=== PATIENT | male | born 1955 | race Caucasian/White ===

== ENCOUNTER 2019-01-20 12:56 | Outpatient (CLI) | payer BC, MEDICARE | END 2019-01-20 12:57 | disposition home or self-care (01) | LOC: C.PAT 12:56 | DX: K43.9 Ventral hernia without obstruction or gangrene (principal) ==

== ENCOUNTER 2019-02-10 08:03 | Inpatient (IN) | payer BC, MEDICARE ==
[2019-02-10 08:04] VITALS: BMI 35.2
[2019-02-10] MEDS ORDERED: Sodium Chloride 0.9% 1,000 ML IV ONE (08:25)
--- NOTE | 2019-02-10 08:25 | C.PDOC ---
History Of Present Illness 64 y/o male,w/PMhx of HTN, hyperlipidemia, and BPH, presents to the ER complaining of ventral hernia which has been present for the past 1 year. Patient reports that he has pain mainly along the periumbilical region. Patient reports that he has increasing pain and the pain is worse with coughing. Denies having fever, chills, nausea, vomiting, abnormal bowel movements, and abdominal surgical history. Time Seen by Provider: 02/10/19 08:24 Chief Complaint (Nursing): Medical Clearance History Per: Patient History/Exam Limitations: no limitations Onset/Duration Of Symptoms: Days, Waxing/Waning Severity: Moderate Past Medical History Reviewed: Historical Data, Nursing Documentation, Vital Signs Vital Signs: Last Vital Signs Temp 98 F 02/10/19 08:09 Pulse 87 02/10/19 08:09 Resp 18 02/10/19 08:09 BP 143/79 02/10/19 08:09 Pulse Ox 96 02/10/19 08:09 - Medical History PMH: Anxiety, Benign Prostatic Hyperplasia, COPD, HTN, Hyperlipidemia, Sleep Apnea Surgical History: Endoscopy Family History: States: No Known Family Hx - Social History Hx Alcohol Use: No Hx Substance Use: No - Immunization History Hx Tetanus Toxoid Vaccination: No Hx Influenza Vaccination: Yes Hx Pneumococcal Vaccination: No Review Of Systems Except As Marked, All Systems Reviewed And Found Negative. Constitutional: Negative for: Fever, Chills Gastrointestinal: Positive for: Abdominal Pain, Other (hernia) Genitourinary: Negative for: Dysuria, Frequency, Hematuria Physical Exam - Physical Exam Appears: Other (comfortable) Skin: Normal Color, Warm, Dry Head: Atraumatic, Normacephalic Eye(s): bilateral: Normal Inspection Neck: Supple Chest: Symmetrical Cardiovascular: Rhythm Regular Respiratory: No Rales, No Rhonchi, No Wheezing Gastrointestinal/Abdominal: Soft, Tenderness (minimal tenderness along periumbilical region), No Guarding, No Rebound, Hernia (reducible hernia), Other (obese) Neurological/Psych: Oriented x3, Normal Speech ED Course And Treatment - Laboratory Results Result Diagrams: 02/10/19 08:52 02/10/19 08:52 ECG: Interpreted By Me, Viewed By Me ECG Rhythm: Sinus Rhythm Rate From EC O2 Sat by Pulse Oximetry: 96 (RA) Pulse Ox Interpretation: Normal - Radiology CXR: Interpreted by Me, Viewed By Me CXR Interpretation: Yes: No Acute Disease Progress - Re-Evaluation Re-evaluation Note: 02/10/19 08:00 D/W DR [place] ADMIT TO HIS [facility] [place], PREOP - Data Reviewed Data Reviewed: Lab, Diagnostic imaging, EKG, Old records Medical Decision Making Medical Decision Making: Plan: --Labs --UA --CXR --IV Fluids Disposition Counseled Patient/Family Regarding: Studies Performed, Diagnosis - Disposition Disposition: HOSPITALIZED Disposition Time: 08:25 Condition: STABLE - POA Present On Arrival: None - Clinical Impression Clinical Impression: Umbilical hernia - Scribe Statement The provider has reviewed the documentation as recorded by the Jamesibe Rosana Ruiz Provider Attestation: All medical record entries made by the Scribe were at my direction and personally dictated by me. I have reviewed the chart and agree that the record accurately reflects my personal performance of the history, physical exam, medical decision making, and the department course for this patient. I have also personally directed, reviewed, and agree with the discharge instructions and disposition.
[2019-02-10 08:58] LABS: BASO % 0.3 % (0.0-2.0); EOS # 0.2 K/uL (0.0-0.7); EOS % 2.6 % (0.0-4.0); HEMOGLOBIN 13.9 g/dL (12.0-18.0); LYMPH # 3.4 K/uL (1.0-4.3); LYMPH % 40.8 % (20.0-40.0); MEAN CELL VOLUME 91.6 fL (80.0-94.0); MEAN CORPUSCULAR HEMOGLOBIN 31.1 pg (27.0-31.0); MONO # 0.8 K/uL (0.0-0.8); MONO % 9.8 % (0.0-10.0); NEUT # 3.9 K/uL (1.8-7.0); NEUT % 46.5 % (50.0-75.0); RBC 4.46 Mil/uL (4.40-5.90); RED CELL DISTRIBUTION WIDTH 13.6 % (11.5-14.5); WHITE BLOOD COUNT 8.4 K/uL (4.8-10.8)
[2019-02-10 09:06] LABS: INR 0.9
[2019-02-10 09:13] LABS: ALB/GLOB RATIO 1.8 (1.0-2.1); ALBUMIN 4.8 g/dL (3.5-5.0); ALT/SGPT 43 U/L (21-72); AST/SGOT 36 U/L (17-59); BLOOD UREA NITROGEN 20 mg/dL (9-20); CALCIUM 9.5 mg/dl (8.6-10.4); GFR NON-AFRICAN AMERICAN 55
[2019-02-10 09:18] LABS: SQUAMOUS EPITHIAL < 1 /hpf (0-5); URINE BILIRUBIN NEGATIVE (NEGATIVE); URINE BLOOD NEGATIVE (NEGATIVE); URINE CALCIUM OXALATE CRYSTALS RARE /hpf (<OCC); URINE CLARITY Clear (Clear); URINE COLOR Yellow (YELLOW); URINE GLUCOSE (UA) NORMAL (Normal); URINE LEUKOCYTE ESTERASE NEG Leu/uL (Negative); URINE PROTEIN 2+ mg/dL (NEGATIVE)
[2019-02-10] MEDS ORDERED: Propofol 10 mg/ml Inj (20 ML) ONE (10:17)
[2019-02-10] MEDS ORDERED: Succinylcholine Chloride 20 mg/ml Syr (5 ml) IV ONE ×2 (10:17→10:48)
[2019-02-10] MEDS ORDERED: Midazolam 2 MG/2 ML VIAL ONE (10:17)
[2019-02-10] MEDS ORDERED: ceFAZolin 1 gm in NS 2 GM/200 ML BAG IVPB ONE (10:26)
[2019-02-10] MEDS ORDERED: Esmolol 100 mg/10ml Inj IV ONE (11:02)
[2019-02-10] MEDS ORDERED: Neostigmine 1:1000 (1 mg/ml) Inj ONE (11:31)
[2019-02-10] MEDS ORDERED: Atropine 0.4 mg/ml Inj (1 mL) ONE ×2 (11:32→11:46)
[2019-02-10] MEDS ORDERED: Bupivacaine HCl 0.5% PF (10 ml) Inj ONE (11:35)
--- NOTE | 2019-02-10 11:42 | RAD ---
HISTORY: Pre Op COMPARISON: None available. TECHNIQUE: Chest PA and lateral, 2 views FINDINGS: LUNGS: No focal consolidation. Please note that chest x-ray has limited sensitivity for the detection of pulmonary masses. PLEURA: No significant pleural effusion identified. No definite pneumothorax . CARDIOVASCULAR: Heart size appears within normal limits. Atherosclerotic calcifications present. OSSEOUS STRUCTURES: Degenerative changes. VISUALIZED UPPER ABDOMEN: Unremarkable. OTHER FINDINGS: None. IMPRESSION: No focal consolidation.
[2019-02-10] MEDS ORDERED: oxyCODONE 5 mg Immediate Release Tab PO PRN (12:06)
--- NOTE | 2019-02-10 12:10 | PCM.SURG1 ---
Surgeon's Initial Post Op Note - Surgeon's Notes Surgeon: Dr. Lauren Forging Press Operator: Waleska PGY2 Type of Anesthesia: General Endo, Local Anesthesia Administered By: Dr. Berg Pre-Operative Diagnosis: incisional ventral hernia, umbilical hernia Operative Findings: large incisional ventral hernia, small umbilical hernia Post-Operative Diagnosis: incisional ventral hernia, umbilical hernia Operation Performed: Repair of incisional ventral hernia and umbilical hernia with mesh Specimen/Specimens Removed: N/A Estimated Blood Loss: EBL {In ML}: 20 Blood Products Given: N/A Drains Used: No Drains Post-Op Condition: Good Date of Surgery/Procedure: 02/10/19 Time of Surgery/Procedure: 12:10
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
[2019-02-10] MEDS: HYDROmorphone 0.5 mg/0.5 ml ISec IVP PRN ×3 (12:30→13:17)
[2019-02-10] MEDS ORDERED: HYDROmorphone 0.5 mg/0.5 ml ISec IVP PRN (16:05)
[2019-02-10] MEDS: Omega-3-Acid Ethyl Esters 1 GM Cap PO SCH (20:14)
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
[2019-02-11 00:03] VITALS: RESP 20
[2019-02-11 07:18] LABS: BASO % 0.2 % (0.0-2.0); EOS % 0.1 % (0.0-4.0); LYMPH # 2.8 K/uL (1.0-4.3); LYMPH % 19.9 % (20.0-40.0); MEAN CELL VOLUME 91.3 fL (80.0-94.0); MEAN CORPUSCULAR HEMOGLOBIN 30.7 pg (27.0-31.0); MEAN CORPUSCULAR HGB CONC 33.6 g/dL (33.0-37.0); MEAN PLATELET VOLUME 8.1 fL (7.2-11.7); MONO # 1.8 K/uL (0.0-0.8); MONO % 12.5 % (0.0-10.0); NEUT # 9.5 K/uL (1.8-7.0); NEUT % 67.3 % (50.0-75.0); RBC 4.22 Mil/uL (4.40-5.90); RED CELL DISTRIBUTION WIDTH 13.6 % (11.5-14.5)
[2019-02-11 07:20] LABS: WHITE BLOOD COUNT 14.2 K/uL (4.8-10.8)
[2019-02-11 07:37] LABS: ALB/GLOB RATIO 1.6 (1.0-2.1); ALBUMIN 4.3 g/dL (3.5-5.0); ALT/SGPT 39 U/L (21-72); AST/SGOT 34 U/L (17-59); BLOOD UREA NITROGEN 19 mg/dL (9-20); CALCIUM 9.5 mg/dl (8.6-10.4); GFR NON-AFRICAN AMERICAN 55
--- NOTE | 2019-02-11 09:33 | CP.PCM.PN ---
Subjective - Date & Time of Evaluation Date of Evaluation: 02/11/19 Time of Evaluation: 06:55 - Subjective Subjective: Surgery: Leonidas Patient seen and examined this am at bedside. Dressing CDI. denies f/c,n/v. pt reports ambulation, encouraged use of binder with ambulation. encouraged IS use and obtained for patient as none was in room. Objective - Vital Signs/Intake and Output Vital Signs (last 24 hours): Temp Pulse Resp BP Pulse Ox 98.8 F 117 H 20 141/77 95 02/11/19 00:05 02/11/19 00:05 02/11/19 00:05 02/11/19 00:05 02/11/19 00:05 - Medications Medications: Current Medications Clopidogrel Bisulfate (Plavix) 75 mg PO DAILY [facility] Cyclobenzaprine HCl (Flexeril) 5 mg PO Q8H [facility] Last Admin: 02/11/19 04:44 Dose: 5 mg Enoxaparin Sodium (Lovenox) 40 mg SC DAILY [facility] Ergocalciferol (Drisdol 50,000 Intl Units Cap) 1 cap PO QWK [facility] Escitalopram Oxalate (Lexapro) 10 mg PO DAILY [facility] Famotidine (Pepcid) 20 mg PO BID [facility] Last Admin: 02/10/19 20:14 Dose: 20 mg Fenofibrate (Tricor) 145 mg PO DAILY [facility] Home Med (Testosterone [Androgel]) 3 pump TOP DAILY [facility] Acetaminophen (Ofirmev) 100 mls @ 100 mls/hr IV Q6H [facility] Stop: 02/11/19 23:31 Last Admin: 02/11/19 05:05 Dose: 100 mls/hr Losartan Potassium (Cozaar) 100 mg PO DAILY [facility] Last Admin: 02/10/19 17:18 Dose: Not Given Morphine Sulfate (Morphine) 2 mg IVP Q4H PRN PRN Reason: Pain, severe (8-10) Last Admin: 02/11/19 00:10 Dose: 2 mg [id number] Ethyl Esters (Lovaza) 1 gm PO BID [facility] Last Admin: 02/10/19 20:14 Dose: 1 gm Oxycodone HCl (Oxycodone Immediate Release Tab) 5 mg PO Q6 PRN PRN Reason: Pain, moderate (4-7) Rosuvastatin Calcium (Crestor) 10 mg PO HS [facility] Last Admin: 02/10/19 21:48 Dose: 10 mg Sitagliptin Phosphate (Januvia) 50 mg PO DAILY [facility] Tamsulosin HCl (Flomax) 0.4 mg PO BID [facility] Last Admin: 02/10/19 20:15 Dose: 0.4 mg - Labs Labs: 02/11/19 07:10 02/11/19 07:10 PT 10.0 SECONDS (9.7-12.2) 02/10/19 08:52 INR 0.9 02/10/19 08:52 APTT 39 SECONDS (21-34) H 02/10/19 08:52 - Constitutional Appears: Well, Non-toxic, No Acute Distress - Head Exam Head Exam: ATRAUMATIC, NORMOCEPHALIC - Eye Exam Eye Exam: EOMI - ENT Exam ENT Exam: Mucous Membranes Moist - Respiratory Exam Respiratory Exam: NORMAL BREATHING PATTERN - Cardiovascular Exam Cardiovascular Exam: REGULAR RHYTHM - GI/Abdominal Exam GI & Abdominal Exam: Soft, Tenderness (apropriate incisional tenderness). absent: Guarding, Rebound Additional comments: incision cdi with operative dressing in place - Neurological Exam Neurological Exam: Alert, Awake, Oriented x3 - Psychiatric Exam Psychiatric exam: Normal Affect, Normal Mood - Skin Skin Exam: Dry, Intact, Normal Color, Warm Assessment and Plan - Assessment and Plan (Free Text) Assessment: 64 yr old male s/p Ventral Hernia Repair POD 1 Plan: - advance diet as tolerated - continue pain control - d/c IV opioid medications and IV Tylenol - begin PO tylenol - lidoderm patch ordered - encourage OOBTC, ambulation and IS use - continue binder use as needed - discussed with Dr. Leonidas Jimenes, PGY 1
[2019-02-11] MEDS ORDERED: TESTOSTERONE PUMP TOP SCH (10:00)
[2019-02-11] MEDS ORDERED: Ergocalciferol 50,000 Intl Units Cap PO SCH (10:00)
[2019-02-11] MEDS: Enoxaparin 40 mg Syringe SC SCH (10:47)
[2019-02-11] MEDS: oxyCODONE 10 mg Immediate Release Tab PO PRN ×2 (11:06→18:19)
[2019-02-11] MEDS: Omega-3-Acid Ethyl Esters 1 GM Cap PO SCH ×2 (11:06→18:19)
[2019-02-11] MEDS: Lidocaine 5% Patch TD SCH (11:08)
[2019-02-12] MEDS: Omega-3-Acid Ethyl Esters 1 GM Cap PO SCH ×2 (10:52→18:07)
[2019-02-12] MEDS: Enoxaparin 40 mg Syringe SC SCH (10:53)
[2019-02-12] MEDS: Lidocaine 5% Patch TD SCH (10:54)
--- NOTE | 2019-02-12 16:28 | CP.PCM.PN ---
Subjective - Date & Time of Evaluation Date of Evaluation: 02/12/19 Time of Evaluation: 11:30 - Subjective Subjective: General Surgery Note for Dr. Lauren Patient seen and examined this am at bedside. Patient states pain has improved but still present. He reports OOB, ambulation, and IS use. Tolerating diet. Patient reports constipation. Objective - Vital Signs/Intake and Output Vital Signs (last 24 hours): Temp Pulse Resp BP Pulse Ox 97.4 F L 107 H 20 130/76 98 02/12/19 07:20 02/12/19 07:20 02/12/19 07:20 02/12/19 07:20 02/12/19 07:20 Intake and Output: 02/12/19 02/12/19 06:59 18:59 Intake Total 240 Balance 240 - Medications Medications: Current Medications Acetaminophen (Tylenol 325mg Tab) 650 mg PO Q6 [facility] Last Admin: 02/12/19 14:41 Dose: 650 mg Clopidogrel Bisulfate (Plavix) 75 mg PO DAILY [facility] Last Admin: 02/12/19 10:52 Dose: 75 mg Cyclobenzaprine HCl (Flexeril) 5 mg PO Q8H [facility] Last Admin: 02/12/19 10:52 Dose: 5 mg Docusate Sodium (Colace) 100 mg PO BID [facility] Enoxaparin Sodium (Lovenox) 40 mg SC DAILY [facility] Last Admin: 02/12/19 10:53 Dose: 40 mg Ergocalciferol (Drisdol 50,000 Intl Units Cap) 1 cap PO QWK [facility] Last Admin: 02/11/19 11:06 Dose: 1 cap Escitalopram Oxalate (Lexapro) 10 mg PO DAILY [facility] Last Admin: 02/12/19 11:03 Dose: 10 mg Famotidine (Pepcid) 20 mg PO BID [facility] Last Admin: 02/12/19 10:52 Dose: 20 mg Fenofibrate (Tricor) 145 mg PO DAILY [facility] Last Admin: 02/12/19 10:54 Dose: 145 mg Lactulose (Enulose) 20 gm PO BID [facility] Last Admin: 02/12/19 14:41 Dose: 20 gm Lidocaine (Lidoderm) 1 ea TD DAILY [facility] Last Admin: 02/12/19 10:54 Dose: 1 ea Losartan Potassium (Cozaar) 100 mg PO DAILY [facility] Last Admin: 02/12/19 10:53 Dose: 100 mg [facility]) [facility] Last Admin: 02/12/19 10:52 Dose: 1,000 mg [id number] Ethyl Esters (Lovaza) 1 gm PO BID [facility] Last Admin: 02/12/19 10:52 Dose: 1 gm Oxycodone HCl (Oxycodone Immediate Release Tab) 5 mg PO Q6 PRN PRN Reason: Pain, moderate (4-7) Oxycodone HCl (Oxycodone Immediate Release Tab) 10 mg PO Q6 PRN PRN Reason: Pain, severe (8-10) Last Admin: 02/11/19 18:19 Dose: 10 mg Rosuvastatin Calcium (Crestor) 10 mg PO HS [facility] Last Admin: 02/11/19 21:42 Dose: 10 mg Sennosides (Senokot Tab) 8.6 mg PO DAILY [facility] Sitagliptin Phosphate (Januvia) 50 mg PO DAILY [facility] Last Admin: 02/12/19 10:53 Dose: 50 mg Tamsulosin HCl (Flomax) 0.4 mg PO BID [facility] Last Admin: 02/12/19 10:52 Dose: 0.4 mg - Labs Labs: 02/11/19 07:10 02/11/19 07:10 PT 10.0 SECONDS (9.7-12.2) 02/10/19 08:52 INR 0.9 02/10/19 08:52 APTT 39 SECONDS (21-34) H 02/10/19 08:52 - Additional Findings Additional findings: - Constitutional Appears: Well, Non-toxic, No Acute Distress - Head Exam Head Exam: ATRAUMATIC, NORMOCEPHALIC - Eye Exam Eye Exam: EOMI - ENT Exam ENT Exam: Mucous Membranes Moist - Respiratory Exam Respiratory Exam: NORMAL BREATHING PATTERN - Cardiovascular Exam Cardiovascular Exam: REGULAR RHYTHM - GI/Abdominal Exam GI & Abdominal Exam: Soft, Tenderness (incisional). absent: Guarding, Rebound Additional comments: incision clean dry and intact - Neurological Exam Neurological Exam: Alert, Awake, Oriented x3 - Psychiatric Exam Psychiatric exam: Normal Affect, Normal Mood - Skin Skin Exam: Dry, Intact, Normal Color, Warm Assessment and Plan - Assessment and Plan (Free Text) Assessment: 64 M s/p Ventral Hernia Repair POD#2 Plan: - Reg diet - pain control - encourage OOB, ambulation and IS use - continue binder use as needed - discussed with Dr. Leonidas Galeano PGY2
[2019-02-12] MEDS: oxyCODONE 10 mg Immediate Release Tab PO PRN (21:40)
[2019-02-13] MEDS: Lidocaine 5% Patch TD SCH (11:34)
[2019-02-13] MEDS: Enoxaparin 40 mg Syringe SC SCH (11:35)
[2019-02-13] MEDS: Omega-3-Acid Ethyl Esters 1 GM Cap PO SCH ×2 (11:36→17:35)
[2019-02-13 11:59] LABS: HEMOGLOBIN 13.4 g/dL (12.0-18.0); MEAN CELL VOLUME 91.3 fL (80.0-94.0); MEAN PLATELET VOLUME 8.4 fL (7.2-11.7); RBC 4.32 Mil/uL (4.40-5.90); RED CELL DISTRIBUTION WIDTH 13.9 % (11.5-14.5); WHITE BLOOD COUNT 12.2 K/uL (4.8-10.8)
[2019-02-13] MEDS ORDERED: Magnesium Citrate Oral SOL (300 ml) PO ONE (15:30)
--- NOTE | 2019-02-13 18:27 | CP.PCM.PN ---
Subjective - Date & Time of Evaluation Date of Evaluation: 02/13/19 Time of Evaluation: 08:30 - Subjective Subjective: General Surgery Note for Dr. Lauren Patient seen and examined this am at bedside. No acute event overnight. Pain has imporved. Patient still did not have BM despite lactulose, senna and colace. Patient to receive mag citrate. He reports OOB, ambulation, and IS use. Tolerating diet. Objective - Vital Signs/Intake and Output Vital Signs (last 24 hours): Temp Pulse Resp BP Pulse Ox 98 F 115 H 20 135/83 97 02/13/19 15:00 02/13/19 15:00 02/13/19 15:00 02/13/19 15:00 02/13/19 15:00 Intake and Output: 02/13/19 02/13/19 06:59 18:59 Intake Total 640 Balance 640 - Medications Medications: Current Medications Acetaminophen (Tylenol 325mg Tab) 650 mg PO Q6 [facility] Last Admin: 02/13/19 14:25 Dose: 650 mg Clopidogrel Bisulfate (Plavix) 75 mg PO DAILY [facility] Last Admin: 02/13/19 11:37 Dose: 75 mg Cyclobenzaprine HCl (Flexeril) 5 mg PO Q8H [facility] Last Admin: 02/13/19 11:39 Dose: 5 mg Docusate Sodium (Colace) 100 mg PO BID [facility] Last Admin: 02/13/19 17:35 Dose: 100 mg Enoxaparin Sodium (Lovenox) 40 mg SC DAILY [facility] Last Admin: 02/13/19 11:35 Dose: 40 mg Ergocalciferol (Drisdol 50,000 Intl Units Cap) 1 cap PO QWK [facility] Last Admin: 02/11/19 11:06 Dose: 1 cap Escitalopram Oxalate (Lexapro) 10 mg PO DAILY [facility] Last Admin: 02/13/19 11:38 Dose: 10 mg Famotidine (Pepcid) 20 mg PO BID [facility] Last Admin: 02/13/19 17:36 Dose: 20 mg Fenofibrate (Tricor) 145 mg PO DAILY [facility] Last Admin: 02/13/19 11:35 Dose: 145 mg Lactulose (Enulose) 20 gm PO BID [facility] Last Admin: 02/13/19 17:35 Dose: 20 gm Lidocaine (Lidoderm) 1 ea TD DAILY [facility] Last Admin: 02/13/19 11:34 Dose: 1 ea Losartan Potassium (Cozaar) 100 mg PO DAILY [facility] Last Admin: 02/13/19 11:37 Dose: 100 mg [facility] Last Admin: 02/13/19 17:36 Dose: 1,000 mg [id number]-[id number] Ethyl Esters (Lovaza) 1 gm PO BID [facility] Last Admin: 02/13/19 17:35 Dose: 1 gm Oxycodone HCl (Oxycodone Immediate Release Tab) 5 mg PO Q6 PRN PRN Reason: Pain, moderate (4-7) Oxycodone HCl (Oxycodone Immediate Release Tab) 10 mg PO Q6 PRN PRN Reason: Pain, severe (8-10) Last Admin: 02/12/19 21:40 Dose: 10 mg Rosuvastatin Calcium (Crestor) 10 mg PO HS [facility] Last Admin: 02/12/19 21:30 Dose: 10 mg Sennosides (Senokot Tab) 8.6 mg PO DAILY [facility] Last Admin: 02/13/19 11:38 Dose: 8.6 mg Sitagliptin Phosphate (Januvia) 50 mg PO DAILY [facility] Last Admin: 02/13/19 11:38 Dose: 50 mg Tamsulosin HCl (Flomax) 0.4 mg PO BID [facility] Last Admin: 02/13/19 17:36 Dose: 0.4 mg - Labs Labs: 02/13/19 11:45 02/11/19 07:10 PT 10.0 SECONDS (9.7-12.2) 02/10/19 08:52 INR 0.9 02/10/19 08:52 APTT 39 SECONDS (21-34) H 02/10/19 08:52 - Additional Findings Additional findings: - Constitutional Appears: Well, Non-toxic, No Acute Distress - Head Exam Head Exam: ATRAUMATIC, NORMOCEPHALIC - Eye Exam Eye Exam: EOMI - ENT Exam ENT Exam: Mucous Membranes Moist - Respiratory Exam Respiratory Exam: NORMAL BREATHING PATTERN - Cardiovascular Exam Cardiovascular Exam: REGULAR RHYTHM - GI/Abdominal Exam GI & Abdominal Exam: Soft, Tenderness (incisional). absent: Guarding, Rebound Additional comments: incision clean dry and intact - Neurological Exam Neurological Exam: Alert, Awake, Oriented x3 - Psychiatric Exam Psychiatric exam: Normal Affect, Normal Mood - Skin Skin Exam: Dry, Intact, Normal Color, Warm Assessment and Plan - Assessment and Plan (Free Text) Assessment: 64 M s/p Ventral Hernia Repair POD#3 Plan: - Reg diet - pain control - encourage OOB, ambulation and IS use - continue binder use as needed - Mag citrate - Bowel regimen - Monitor for BM - discussed with Dr. Leonidas Galeano PGY2
--- NOTE | 2019-02-14 08:51 | CP.PCM.DIS ---
Provider - Provider Date of Admission: 02/10/19 12:07 Attending physician: Aleks Lauren Jr, MD Time Spent in preparation of Discharge (in minutes): 45 Hospital Course - Lab Results Lab Results: Most Recent Lab Values WBC 12.2 K/uL (4.8-10.8) H 02/13/19 11:45 RBC 4.32 Mil/uL (4.40-5.90) L 02/13/19 11:45 Hgb 13.4 g/dL (12.0-18.0) 02/13/19 11:45 Hct 39.4 % (35.0-51.0) 02/13/19 11:45 MCV 91.3 fL (80.0-94.0) 02/13/19 11:45 MCH 31.0 pg (27.0-31.0) 02/13/19 11:45 MCHC 34.0 g/dL (33.0-37.0) 02/13/19 11:45 RDW 13.9 % (11.5-14.5) 02/13/19 11:45 Plt Count 336 K/uL (130-400) 02/13/19 11:45 MPV 8.4 fL (7.2-11.7) 02/13/19 11:45 Neut % (Auto) 67.3 % (50.0-75.0) 02/11/19 07:10 Lymph % (Auto) 19.9 % (20.0-40.0) L 02/11/19 07:10 Moca % (Auto) 12.5 % (0.0-10.0) H 02/11/19 07:10 Eos % (Auto) 0.1 % (0.0-4.0) 02/11/19 07:10 Baso % (Auto) 0.2 % (0.0-2.0) 02/11/19 07:10 Neut # (Auto) 9.5 K/uL (1.8-7.0) H 02/11/19 07:10 Lymph # (Auto) 2.8 K/uL (1.0-4.3) 02/11/19 07:10 Moca # (Auto) 1.8 K/uL (0.0-0.8) H 02/11/19 07:10 Eos # (Auto) 0.0 K/uL (0.0-0.7) 02/11/19 07:10 Baso # (Auto) 0.0 K/uL (0.0-0.2) 02/11/19 07:10 PT 10.0 SECONDS (9.7-12.2) 02/10/19 08:52 INR 0.9 02/10/19 08:52 APTT 39 SECONDS (21-34) H 02/10/19 08:52 Sodium 140 mmol/L (132-148) 02/11/19 07:10 Potassium 4.7 mmol/L (3.6-5.2) 02/11/19 07:10 Chloride 103 mmol/L (98-107) 02/11/19 07:10 Carbon Dioxide 26 mmol/L (22-30) 02/11/19 07:10 Anion Gap 15 (10-20) 02/11/19 07:10 BUN 19 mg/dL (9-20) 02/11/19 07:10 Creatinine 1.3 mg/dL (0.8-1.5) 02/11/19 07:10 Est GFR ( Amer) > 60 02/11/19 07:10 Est GFR (Non-Af Amer) 55 02/11/19 07:10 POC Glucose (mg/dL) 119 mg/dL (65-110) H 02/14/19 06:22 Random Glucose 137 mg/dL (75-110) H 02/11/19 07:10 Calcium 9.5 mg/dl (8.6-10.4) 02/11/19 07:10 Total Bilirubin 0.5 mg/dL (0.2-1.3) 02/11/19 07:10 AST 34 U/L (17-59) 02/11/19 07:10 ALT 39 U/L (21-72) 02/11/19 07:10 Alkaline Phosphatase 50 U/L (38-126) 02/11/19 07:10 Total Protein 7.1 g/dL (6.3-8.3) 02/11/19 07:10 Albumin 4.3 g/dL (3.5-5.0) 02/11/19 07:10 Globulin 2.8 gm/dL (2.2-3.9) 02/11/19 07:10 Albumin/Globulin Ratio 1.6 (1.0-2.1) 02/11/19 07:10 Urine Color Yellow (YELLOW) 02/10/19 09:05 Urine Clarity Clear (Clear) 02/10/19 09:05 Urine pH 6.0 (5.0-8.0) 02/10/19 09:05 Ur Specific Lissie 1.026 (1.003-1.030) 02/10/19 09:05 Urine Protein 2+ mg/dL (NEGATIVE) H 02/10/19 09:05 Urine Glucose (UA) Normal mg/dL (Normal) 02/10/19 09:05 Urine Ketones Negative mg/dL (NEGATIVE) 02/10/19 09:05 Urine Blood Negative (NEGATIVE) 02/10/19 09:05 Urine Nitrate Negative (NEGATIVE) 02/10/19 09:05 Urine Bilirubin Negative (NEGATIVE) 02/10/19 09:05 Urine Urobilinogen 2.0 mg/dL (0.2-1.0) 02/10/19 09:05 Ur Leukocyte Esterase Neg Zoey/uL (Negative) 02/10/19 09:05 Urine WBC (Auto) 1 /hpf (0-5) 02/10/19 09:05 Urine RBC (Auto) 1 /hpf (0-3) 02/10/19 09:05 Ur Squamous Epith Cells < 1 /hpf (0-5) 02/10/19 09:05 Calcium Oxalate Crystal Rare /hpf (<OCC) 02/10/19 09:05 Blood Type O POSITIVE 02/10/19 08:52 Antibody Screen Negative 02/10/19 08:52 - Hospital Course Hospital Course: 64 yr old male with PMH Anxiety, Benign Prostatic Hyperplasia, COPD, DM, HTN, Hyperlipidemia, Sleep Apnea who presented for repair of incisional ventral hernia and umbilical hernia. Patient underwent open procedure and recovered well. Throughout hospital stay patient's pain was well controlled and he was encouraged to utilize his IS, ambulate and utilize the abdominal binder. On POD 4 the patient was discharged from the hospital in a stable condtion with instructions to follow up with Dr. Lauren in his office. - Date & Time of H&P Date of H&P: 02/14/19 Time of H&P: 07:05 Discharge Exam - Head Exam Head Exam: ATRAUMATIC, NORMOCEPHALIC - Eye Exam Eye Exam: EOMI - ENT Exam ENT Exam: Mucous Membranes Moist - Respiratory Exam Respiratory Exam: NORMAL BREATHING PATTERN - Cardiovascular Exam Cardiovascular Exam: REGULAR RHYTHM - GI/Abdominal Exam GI & Abdominal Exam: Soft. absent: Distended, Guarding, Tenderness Additional comments: incisions cdi, steristrips in place - Extremities Exam Extremities exam: pedal pulses present - Neurological Exam Neurological exam: Alert, Oriented x3 - Psychiatric Exam Psychiatric exam: Normal Affect, Normal Mood - Skin Skin Exam: Dry, Intact, Normal Color, Warm Additional comments: incisions cdi Discharge Plan - Follow Up Plan Condition: STABLE Disposition: HOME/ ROUTINE Instructions: Managing Pain After Surgery, Open Herniorrhaphy (DC), Laparoscopic Herniorrhaphy (DC), Inguinal Hernia (DC) Additional Instructions: please follow up in the office with Dr. Lauren within 7-10 days of discharge, you will need to call to make an appointment you may shower but refrain from pools, swimming, baths or hot tubs for 2 weeks after your surgery you have midline white tape/ bandaids, these will fall off on hteir own and do not need to be removed. If any new or concerning symptoms such as but not limited to increased abdominal pain, n/v, f/c, incisional drainage or any other concerning symptoms occur please return to the ER and notify Dr. Leyva office Referrals: Aleks Lauren Jr., MD [Staff Provider] -
[2019-02-14] MEDS: Enoxaparin 40 mg Syringe SC SCH (10:51)
[2019-02-14] MEDS: Omega-3-Acid Ethyl Esters 1 GM Cap PO SCH ×2 (10:52→18:13)
[2019-02-14] MEDS: Lidocaine 5% Patch TD SCH (10:53)
[2019-02-14 11:16] LABS: BASO % 0.3 % (0.0-2.0); EOS # 0.3 K/uL (0.0-0.7); EOS % 3.8 % (0.0-4.0); LYMPH # 3.5 K/uL (1.0-4.3); LYMPH % 38.5 % (20.0-40.0); MEAN CELL VOLUME 90.6 fL (80.0-94.0); MEAN CORPUSCULAR HEMOGLOBIN 30.3 pg (27.0-31.0); MEAN CORPUSCULAR HGB CONC 33.5 g/dL (33.0-37.0); MEAN PLATELET VOLUME 8.2 fL (7.2-11.7); MONO # 0.9 K/uL (0.0-0.8); MONO % 9.8 % (0.0-10.0); NEUT # 4.3 K/uL (1.8-7.0); NEUT % 47.6 % (50.0-75.0); NRBC % 0.1 % (0.0-2.0); RBC 4.3 Mil/uL (4.40-5.90); RED CELL DISTRIBUTION WIDTH 13.3 % (11.5-14.5); WHITE BLOOD COUNT 9.1 K/uL (4.8-10.8)
[2019-02-14 11:25] LABS: ALB/GLOB RATIO 1.3 (1.0-2.1); ALBUMIN 4.5 g/dL (3.5-5.0); CALCIUM 10.2 mg/dl (8.6-10.4)
[2019-02-14 19:12] VITALS: BP 138/73; PULSE 109; TEMP 98.7; O2SAT 94
== END 2019-02-14 19:10 | disposition home or self-care (01) | DRG 355 ==
LOC: C.ER 08:03 → C.SDS 08:36 → C.9S 12:07 → C.6T 19:54
PROVIDERS: ADMIT Surgery Vascular Surgery; ATTEND Surgery Vascular Surgery
PROC: 0WUF0JZ Supplement Abdominal Wall with Synthetic Substitute, Open Approach (ICD-10-PCS; principal; 2019-02-10 10:30)
PROC: 5A09457 Assistance with Respiratory Ventilation, 24-96 Consecutive Hours, Continuous Positive Airway Pressure (ICD-10-PCS; 2019-02-11)
DX: K43.2 Incisional hernia without obstruction or gangrene (principal); E11.9 Type 2 diabetes mellitus without complications; E78.5 Hyperlipidemia, unspecified; G47.30 Sleep apnea, unspecified; I10 Essential (primary) hypertension; J44.9 Chronic obstructive pulmonary disease, unspecified; K59.00 Constipation, unspecified; N40.0 Benign prostatic hyperplasia without lower urinary tract symptoms; E66.3 Overweight; Z68.35 Body mass index [BMI] 35.0-35.9, adult